=== PATIENT | female | born 1995 | race Two or more races ===

== ENCOUNTER 2019-04-15 09:17 | Emergency (ER) | payer OTHER ==
[~2019-04-15] VITALS: Ht 167.6 cm; Wt 67.5 kg
[2019-04-15 09:21] VITALS: BP 107/58
[2019-04-15] MEDS ORDERED: FLUORESCEIN OPHTHALMIC 1 MG STRIP ONE (09:36)
[2019-04-15] MEDS ORDERED: PROPARACAINE OPHTH 0.5%, 15ML ONE (09:36)
== END 2019-04-15 10:27 | disposition home or self-care (01) ==
LOC: ED 09:41
DX: H57.89 Other specified disorders of eye and adnexa (principal)
CPT/HCPCS: 99283

== ENCOUNTER 2019-05-06 12:20 | Emergency (ER) | payer OTHER ==
[~2019-05-06] VITALS: Ht 167.6 cm; Wt 68.9 kg
[~2019-05-06 12:20] MED LIST: BIRTH CONTROL; CETI10TA24 PO; EPIN0.3A3 IM; METO25TA35 PO
[2019-05-06 12:40] VITALS: BP 122/57
== END 2019-05-06 13:27 | disposition home or self-care (01) ==
LOC: ED 13:22
DX: T78.40XA Allergy, unspecified, initial encounter (principal); X58.XXXA Exposure to other specified factors, initial encounter
CPT/HCPCS: 99281